=== PATIENT | female | born 1985 | race Caucasian/White ===

== ENCOUNTER 2021-07-10 18:13 | Emergency (ER) | payer OTHER ==
[~2021-07-10] VITALS: Ht 162.6 cm; Wt 61.2 kg
[2021-07-10] MEDS ORDERED: ZOFRAN ODT4 MG PO (19:23)
[2021-07-10 19:30] VITALS: BP 110/80
[2021-07-10] MEDS ORDERED: CORTISPORIN OTI10 ML OTIC (19:30)
[2021-07-10] MEDS ORDERED: AUGMENTIN 875-1 EACH PO (19:32)
== END 2021-07-10 19:30 | disposition home or self-care (01) ==
LOC: M.ERS 18:13
DX: B34.9 Viral infection, unspecified (principal); Z20.822 Contact with and (suspected) exposure to COVID-19; H60.91 Unspecified otitis externa, right ear; F17.200 Nicotine dependence, unspecified, uncomplicated; Z90.49 Acquired absence of other specified parts of digestive tract; Z85.038 Personal history of other malignant neoplasm of large intestine